=== PATIENT | male | born 1985 | race Caucasian/White ===

== ENCOUNTER 2019-12-17 17:12 | Emergency (ER) | payer SELFPAY ==
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
== END 2019-12-17 19:14 ==
LOC: FB.ED 17:12
DX: B34.9 Viral infection, unspecified (principal); D72.1 Eosinophilia; Z20.828 Contact with and (suspected) exposure to other viral communicable diseases
CPT/HCPCS: 36415; 80053; 85025; 86140; 99283; U0002